=== PATIENT | female | born 1965 | race Caucasian/White ===

== ENCOUNTER 2017-08-08 17:02 | Inpatient (IN) ==
[2017-08-08] MEDS ORDERED: *HR* FentaNYL (PF) 100 MCG/2 ML VIAL IVP ONE ×2 (17:10→18:13)
[2017-08-08] MEDS ORDERED: *HR* FentaNYL (PF) 100 MCG/2 ML VIAL ONE (17:12)
[2017-08-08] MEDS ORDERED: Tdap (Boostrix) Vaccine 0.5 ML SYRINGE IM ONE (17:23)
--- NOTE | 2017-08-08 17:26 | Emergency Department Note ---
Disposition Clinical Impression: Acute internal derangement of knee Qualifiers: Laterality: left Qualified Code(s): M23.92 - Unspecified internal derangement of left knee Tibial plateau fracture Qualifiers: Encounter type: initial encounter Fracture type: closed Laterality: left Qualified Code(s): S82.142A - Displaced bicondylar fracture of left tibia, initial encounter for closed fracture Disposition: Admitted As Inpatient Condition: Good Referrals: Lino Melton MD [Primary Care Provider] - Forms: ED Satisfaction Letter Time of Disposition: 18:39 General Adult HPI - General Chief complaint: ED Extremity Injury, Lower Stated complaint: left knee injury Time Seen by Provider: 08/08/17 17:08 Source: patient Limitations: no limitations Nursing Notes Reviewed: Yes Vital Signs Reviewed: Yes - History of Present Illness HPI Narrative: Female patient fell from approximately 2-1/2-3 feet in the air. Denies any loss of consciousness. Complaining of isolated left knee pain. Have a history of hypertension and gastric bypass. Has not been able to ambulate since the fall. Has not tried any medication to make it better. Pain Scale: 8 - Related Data Home Medications Medication Instructions Recorded Confirmed Calcium 05/13/16 Potassium 05/13/16 B Complex 03/02/17 Vitamin B-12 03/02/17 Vitamin D3 03/02/17 Previous Rx's Medication Instructions Recorded Lidocaine Viscous Oral Soln 15 ml MM QID PRN #200 ml 03/02/17 Sulfamethoxazole/Trimeth DS 1 each PO BID #20 tablet 03/02/17 [Bactrim DS] Allergies Allergy/AdvReac Type Severity Reaction Status Date / Time tramadol AdvReac Drowsy Verified 03/02/17 09:46 All systems ED: reviewed and negative except as stated. Constitutional: Denies: fever, chills Cardiovascular: Denies: chest pain, syncope Respiratory: Denies: cough, dyspnea Gastrointestinal: Denies: abdominal pain, nausea, vomiting, diarrhea Genitourinary: Denies: urgency, dysuria, frequency Musculoskeletal: Reports: other (Left knee pain). Denies: back pain, neck pain Integumentary: Reports: abrasion (To inner right lower leg). Denies: rash Neurological: Denies: headache, weakness Past Medical History - Past Medical History Attestation: Yes The following information was validated with the patient. Source: patient Medical history: Reports: non-contributory Psychiatric history: Reports: no psych history - Social History Smoking Status: Never smoker Smokeless Tobacco Status: No Alcohol use: Reports: occasionally Drug use: Reports: none Physical Exam - General Limitations: no limitations General appearance: alert, in no apparent distress - Head Head exam: atraumatic, normocephalic, normal inspection - Eye Eye exam: Present: normal appearance, PERRL, EOMI - ENT ENT exam: normal exam, normal oropharynx, mucous membranes moist - Neck Neck exam: Present: normal inspection, full ROM, trachea midline - Chest Chest inspection: Present: normal inspection, symmetric chest wall rise - Respiratory Respiratory exam: Present: normal lung sounds bilaterally. Absent: respiratory distress, accessory muscle use - Cardiovascular Cardiovascular exam: Present: regular rate, normal rhythm, normal heart sounds - Abdominal Exam Abdominal exam: Present: soft, Non-Tender. Absent: tenderness, distention, guarding, rebound, rigidity - Expanded Upper Extremity Exam Shoulder exam: Present: normal inspection, full ROM Arm exam: Present: normal inspection, full ROM Elbow exam: Present: normal inspection, full ROM Forearm/Wrist exam: Present: normal inspection, full ROM Hand exam: Present: normal inspection, full ROM Vascular exam: Normal: capillary refill, radial pulse - Expanded Lower Extremity Exam Hip/Pelvis exam: Present: normal inspection, full ROM Upper leg exam: Present: normal inspection, full ROM Knee exam: Present: tenderness (To palpation of left knee.). Absent: ecchymosis , dislocation, erythema Lower leg exam: Present: normal inspection, full ROM Ankle exam: Present: normal inspection, full ROM Foot/toe exam: Present: normal inspection, full ROM Neurovascular/Tendon exam: Absent: motor deficit, sensory deficit, tendon deficit - Back Exam Back exam: Present: normal inspection, full ROM. Absent: tenderness - Neurological Exam Neurological exam: Present: alert, oriented X3 - Psychiatric Psychiatric exam: Present: normal affect, normal mood - Skin Skin exam: Present: warm, dry, normal color - Expanded Skin Exam 1 - Abrasion Course Course Narrative: Female patient was walking down a step stool that she had made an fell. Appears as if she fell from around 2-1/2 to 3 feet up in the air. Denies any loss of consciousness. Reports only left knee pain. Does have some slight abrasions to the medial right lower extremity. Is not up-to-date on her tetanus. We will update this. She denies any other pain. We will provide her with pain medication and images left knee. She has good pulses distal to this injury. Patient does have pain to palpation of the medial aspect of her left knee. She refuses to move this secondary to pain. She has full range of motion of her right lower extremity with no pain. - Reevaluation(s) Reevaluation #1: Patient does have a tibial plateau fracture. I discussed this patient with Dr. mcgill he is requesting her bring the patient into the hospital for admission and get a CT of the knee. We will facilitate this. - Consultations Consultation #1: Dr Orozco consulted. he is requesting a ct of pt tibal plateau and for the Pt to be NPO at midnight. Time: 18:19 Consultation #2: Dr garg accepted Pt in stable condition Time: 18:38 Vital Signs Temperature 98.1 F 08/08/17 17:05 Pulse Rate 104 08/08/17 17:05 Respiratory Rate 20 08/08/17 17:05 Blood Pressure 125/92 08/08/17 17:05 O2 Sat by Pulse Oximetry 98 08/08/17 17:05 Temperature 98.1 F 08/08/17 17:05 Pulse Rate 98 08/08/17 17:07 Respiratory Rate 20 08/08/17 17:05 Blood Pressure 125/92 08/08/17 17:05 O2 Sat by Pulse Oximetry 98 08/08/17 17:05 Oxygen Delivery Oxygen Delivery Room Air Medical Decision Making - Radiology Data Radiology results reviewed: Yes I reviewed the patient's radiology results. Knee X-Ray 08/08/17 17:08 IMPRESSION: Comminuted and mildly depressed lateral tibial plateau fracture. D/ / 08/08/2017 18:06:45 Dante Ngo MD / reyna Interpreting Provider: Dante Ngo MD Tibia/Fibula X-Ray 08/08/17 17:26
--- NOTE | 2017-08-08 17:38 | Emergency Department Note ---
Disposition Clinical Impression: Acute internal derangement of knee Disposition: Still a Patient Referrals: Lino Melton MD [Primary Care Provider] - Forms: ED Satisfaction Letter General Adult HPI - General Chief complaint: ED Extremity Injury, Lower Stated complaint: left knee injury Time Seen by Provider: 08/08/17 17:08 Source: patient Limitations: no limitations - History of Present Illness HPI Narrative: Attestation note I examined this patient and my medical decision-making was reviewed with the emergency medicine resident. I agree with the documented findings, disposition and treatment plan as described except to the extent set forth below. Patient seen with emergency medicine resident Dr. Pratima Thorpe, Please see a copy of his note for details of the H&P, ED evaluation, management and disposition. I have independently evaluated the patient and confirmed appropriate portions of the history and physical exam. Briefly: 51-year-old female by EMS after slip and fall down stairs spell for Internal left knee which is in a vacuum splint. Chest some slight abrasions patient will get a tetanus booster patient got IV fentanyl for pain control patient getting x-rays. Disposition pending. Pain Scale: 8 - Related Data Home Medications Medication Instructions Recorded Confirmed Calcium 05/13/16 Potassium 05/13/16 B Complex 03/02/17 Vitamin B-12 03/02/17 Vitamin D3 03/02/17 Previous Rx's Medication Instructions Recorded Lidocaine Viscous Oral Soln 15 ml MM QID PRN #200 ml 03/02/17 Sulfamethoxazole/Trimeth DS 1 each PO BID #20 tablet 03/02/17 [Bactrim DS] Allergies Allergy/AdvReac Type Severity Reaction Status Date / Time tramadol AdvReac Drowsy Verified 03/02/17 09:46 Past Medical History - Past Medical History Medical history: Reports: non-contributory Psychiatric history: Reports: no psych history - Social History Smoking Status: Never smoker Smokeless Tobacco Status: No Alcohol use: Reports: occasionally Drug use: Reports: none Physical Exam - General Limitations: no limitations General appearance: alert, in no apparent distress Course - Reevaluation(s) Reevaluation #1: Attestation note I examined this patient and my medical decision-making was reviewed with the emergency medicine resident. I agree with the documented findings, disposition and treatment plan as described except to the extent set forth below. Patient seen with emergency medicine resident Dr. Pratima Thorpe, Please see a copy of his note for details of the H&P, ED evaluation, management and disposition. I have independently evaluated the patient and confirmed appropriate portions of the history and physical exam. Briefly: 51-year-old female history of kidney stone presents with flank pain and dysuria hematuria. Physical examination is benign afebrile with stable vital signs patient with analgesics urinalysis. Disposition pending. Time: 17:37 Vital Signs Temperature 98.1 F 08/08/17 17:05 Pulse Rate 104 08/08/17 17:05 Respiratory Rate 20 08/08/17 17:05 Blood Pressure 125/92 08/08/17 17:05 O2 Sat by Pulse Oximetry 98 08/08/17 17:05 Temperature 98.1 F 08/08/17 17:05 Pulse Rate 98 08/08/17 17:07 Respiratory Rate 20 08/08/17 17:05 Blood Pressure 125/92 08/08/17 17:05 O2 Sat by Pulse Oximetry 98 08/08/17 17:05 Oxygen Delivery Oxygen Delivery Room Air
[2017-08-08] MEDS ORDERED: *HR* OxyCODONE/APAP 7.5/325 TABLET PO STA (18:14)
[2017-08-08] MEDS ORDERED: OXYCODONE Oral CONC 10 MG/0.5 ML ORAL.SYG SL PRN (19:22)
[2017-08-08] MEDS ORDERED: Ondansetron 4 MG/2 ML VIAL IVP PRN (19:22)
[2017-08-08] MEDS ORDERED: Naloxone 0.4 MG/ML INJ IVP PRN (19:22)
--- NOTE | 2017-08-08 19:30 | Internal Med History&Physical ---
Date of Encounter: 08/08/17 Time of Encounter: 19:10 Internal Medicine - H&P: HPI Chief complaint: L leg pain Admitted From: Home Plans for Post Hospital Care: Home History of present illness: Ms. Gregory is a 51 year old female with no medical problems fell off stool today and landed on L leg. She had severe pain and EMS called. In ED she was found to have tibial plateau fracture and admitted. Currently she is having some pain. Denies syncope. No fever or chills. Past Med Surg Social Fam HX - Past Medical History Source: patient Medical history: no medical history Psychiatric history: no psych history - Past Surgical History Additional surgical history: SPINAL SX X2. L thumb surgery - Social History Smoking Status: Never smoker Smokeless Tobacco Status: No Alcohol use: occasionally Drug use: none Current living situation: Home - Independent Activity Level: Independent ambulation Additional social history: Denies significant family history Internal Medicine - H&P: Meds Calcium 05/13/16 [History] Potassium 05/13/16 [History] B Complex 03/02/17 [History] Lidocaine Viscous Oral Soln 15 ml MM QID PRN #200 ml 03/02/17 [Rx] Sulfamethoxazole/Trimeth DS [Bactrim DS] 1 each PO BID #20 tablet 03/02/17 [Rx] Vitamin B-12 03/02/17 [History] Vitamin D3 03/02/17 [History] 3 Allergy/AdvReac Type Severity Reaction Status Date / Time tramadol AdvReac Drowsy Verified 03/02/17 09:46 All Systems PM: A 10-system review of systems was performed and is negative for pertinent findings except as documented above in the HPI. - Constitutional Constitutional: no fatigue, no malaise - EENT Eyes: no blurry vision, no loss of vision Ears: no decreased hearing Nose, mouth and throat: no dry mouth, no mouth pain, no sore throat - Cardiovascular Cardiovascular ROS IM: no chest pain, no dyspnea, no dyspnea on exertion - Respiratory Respiratory: no cough, no dyspnea, no chest congestion - Gastrointestinal Gastrointestinal: no abdominal pain, no melena - Genitourinary Genitourinary: no dysuria, no flank pain, no urinary urgency - Musculoskeletal Musculoskeletal ROS IM: arthralgias - Integumentary Integumentary IM: no erythema, no rash - Neurological Neurological ROS: no dizziness, no loss of vision - Endocrine Endocrine IM: no cold intolerance, no flushing - Hematologic/Lymphatic Hematologic/Lymphatic: no easy bruising - Allergic/Immunologic Allergic/Immunologic: no itchy eyes, no wheezing - Constitutional Vitals: Temp Pulse Resp BP Pulse Ox 98.9 F 73 15 116/79 99 08/08/17 19:21 08/08/17 19:21 08/08/17 19:21 08/08/17 19:21 08/08/17 19:21 General appearance: Present: A&O X 3, pleasant, answers questions appropriately - Head Head exam: Present: normocephalic - Eye Eye exam: Present: EOMI, conjuntiva pink - ENT ENT exam: Present: mucous membranes dry - Neck Neck exam general surgery: Present: supple. Absent: tenderness - Respiratory Respiratory exam: Present: CTAB. Absent: rales, rhonchi, wheezes - Cardiovascular Cardiovascular exam: Present: RRR. Absent: systolic murmur, tachycardia - GI/Abdominal GI/Abdominal exam: Present: normal bowel sounds, soft. Absent: mass, tenderness - Extremities Exam Extremities exam: Present: joint swelling, tenderness, warm - Neurological Exam Neurological exam: Present: alert, oriented X3, no focal deficits - Skin Skin exam: Present: dry, warm. Absent: rash - Assessment and plan (1) Tibial plateau fracture Current Visit: Yes Status: Acute Assessment and plan: Acute L tibial plateau fracture. NPO midnight Pain control Medically low risk for surgery. Qualifiers: Encounter type: initial encounter Fracture type: closed Laterality: left Qualified Code(s): S82.142A - Displaced bicondylar fracture of left tibia, initial encounter for closed fracture - Time Spent With Patient Total time spent is greater than 50% in coordination of care (as documented) at patient's floor/unit and/or counseling patient:
[2017-08-08] MEDS: OXYCODONE Oral CONC 10 MG/0.5 ML ORAL.SYG SL PRN (19:56)
[2017-08-08] MEDS ORDERED: *HR* Meperidine 25 MG/ML SYRINGE IVP PRN (22:41)
--- NOTE | 2017-08-08 23:01 | Orthopedic Consult Note ---
Date of Encounter: 08/08/17 Time of Encounter: 22:54 History of Present Illness Chief complaint: Left knee pain HPI: Ms. Gregory is a 51 year old female who sustained an injury to her left knee when she fell off a small stool. She landed directly on her left leg with immediate pain about the left knee and he will inability to ambulate. She was brought to the emergency room and [facility] x-rays taken revealed evidence of a fracture. This was further evaluated with a CT scan that delineate the extent of the injury. Patient denies neurovascular complaints. She describes excruciating pain. Denies any other injuries. Patient is known to me from previous orthopedic treatment in the past. I reviewed the patient's complete medical record including history and physical examination and multiple imaging studies. Pertinent orthopedic examination reveals a knee held in a flexed position. There is marked tenderness. No obvious ecchymosis at this time. Distal neurosensory exam is grossly intact. I reviewed x-rays. These are difficult to interpret due to the persistent flexed position of the x-ray but there is evidence of widening of the lateral side of the tibia with a valgus deformity. CT scan is much more revealing showing a markedly comminuted, split, depressed lateral tibial plateau fracture with an associated fracture of the medial tibial plateau extending down to the metaphyseal region. Impression: Displaced, comminuted bicondylar fracture left tibial plateau Recommendation: At a very long discussion with the patient regarding the magnitude of this injury and the long-term ramifications of it. This is a severe injury with some chronic sequelae related to it. I discussed treatment options which would be either nonoperative with poor outcome anticipated for surgical intervention in the form of open reduction internal fixation with attempts to elevate the depressed segments and restore at least normal width of the tibia. I discussed with the patient that surgery is going to be designed to give her good bone stock for the time when her knee is more problematic due to the posttraumatic arthritis that a knee replacement is indicated. We discussed the surgical procedure at length which included a discussion of the risks and complications that include but are not limited to bleeding, infection , nerve injury, stiffness, malunion, nonunion, as well as the very much anticipated posttraumatic arthritis. Patient understands and has signed informed consent to proceed with surgery. We will schedule for tomorrow and proceed when operating room time is available. Thank you very much for allowing me to see and care for Ms. Gregory. Sincerely, Marco A Orozco,DO Past Med Surg Social Fam HX - Past Medical History Medical history: no medical history Psychiatric history: no psych history - Past Surgical History Surgical History: Additional surgical history: SPINAL SX X2. L thumb surgery - Social History Smoking Status: Never smoker Smokeless Tobacco Status: No Alcohol use: occasionally Drug use: none - Family History Father Name: BETO GREGORY Living Status: Hx Family Cancer: Yes Medications and Allergies Calcium 05/13/16 [History] Potassium 05/13/16 [History] B Complex 03/02/17 [History] Lidocaine Viscous Oral Soln 15 ml MM QID PRN #200 ml 03/02/17 [Rx] Sulfamethoxazole/Trimeth DS [Bactrim DS] 1 each PO BID #20 tablet 03/02/17 [Rx] Vitamin B-12 03/02/17 [History] Vitamin D3 03/02/17 [History] 3 Allergy/AdvReac Type Severity Reaction Status Date / Time tramadol AdvReac Drowsy Verified 03/02/17 09:46 All Systems Reviewed: The remainder of the systems were reviewed and are negative Physical Exam - Constitutional Vitals: Temp Pulse Resp BP Pulse Ox 98.9 F 73 15 116/79 99 08/08/17 19:21 08/08/17 19:21 08/08/17 19:21 08/08/17 19:21 08/08/17 19:21 Results - Labs Labs: All other labs normal. - Diagnostic results Knee x-ray: image reviewed Knee CT: image reviewed Consult Discharge Plan - Plan Referrals: Lino Melton MD [Primary Care Provider] -
[2017-08-08] MEDS: *HR* Meperidine 25 MG/ML SYRINGE IVP PRN (23:04)
[2017-08-09] MEDS: Ringers Solution, Lactated 1,000 ML IVC SCH ×2 (00:10→13:34)
[2017-08-09] MEDS: OXYCODONE Oral CONC 10 MG/0.5 ML ORAL.SYG SL PRN ×4 (00:13→23:53)
[2017-08-09] MEDS: *HR* Meperidine 25 MG/ML SYRINGE IVP PRN ×5 (01:57→16:22)
[2017-08-09] MEDS: Ketorolac 30 MG/ML VIAL IVP PRN ×2 (03:25→12:37)
[2017-08-09 05:02] LABS: Basophils % 0.3 %; Eosinophils % 0.3 %; Hematocrit 32.5 % (35.3-44.9); Hemoglobin 10.3 g/dL (11.5-15.4); Immature Granulocytes % 0.3 % (0-4); Lymphocytes # 1.3 K/mcL (0.6-4.6); Lymphocytes % 20.4 %; Mean Corpuscular HGB Conc 31.7 g/dL (31.6-35.5); Mean Corpuscular Volume 94.8 fL (83.0-100.0); Mean Platelet Volume 10.8 fL (9.4-12.4); Monocytes # 0.7 K/mcL (0.0-1.3); Monocytes % 11.2 %; Neutrophils # 4.2 K/mcL (1.6-8.9); Platelet Count 215 K/mcL (140-400); Red Blood Count 3.43 M/mcL (3.82-4.97); Red Cell Distribution Width 13.7 % (11.5-14.5); Segmented Neutrophils % 67.5 %
[2017-08-09 05:17] LABS: BUN/Creatinine Ratio 21 (6-26); Blood Urea Nitrogen 16 mg/dL (6-20); Calcium 8.8 mg/dL (8.6-10.3); Carbon Dioxide 27 mEq/L (23-29); Chloride 107 mEq/L (98-107); Glucose 100 mg/dL (70-105); Osmolality,Calculated 291 (280-300); Potassium 3.7 mEq/L (3.5-5.1); Sodium 140 mEq/L (136-145); eGFR For African Americans > 60 (> 60); eGFR For Non-African Americans > 60 (> 60)
[2017-08-09] MEDS ORDERED: *HR* Enoxaparin 30 MG/0.3 ML SYRINGE SQ SCH (06:00)
[2017-08-09] MEDS ORDERED: Orphenadrine 60 MG/2 ML VIAL IVP ONE ×2 (09:01→17:34)
--- NOTE | 2017-08-09 15:46 | Anesthesia Evaluation PreOp ---
Date of Encounter: 08/09/17 Time of Encounter: 18:30 - Past History Planned Operation: ORIF L-Tibial Plateau Fx Cardiac History: Denies any Significant Hx Pulmonary History: Denies Any Significant HX SHEET HANGER History: Denies Any Significant HX Other Medical History: Denies Any Significant HX Anesthesia History: No Prior Anesthetic Complications, Past Anesthesia (Spinal Surgery x 2, x 1, [facility], Thumb arthroscopy, Gastric bypass 2005) Alcohol Use: occasionally Drug use: none Medications and Allergies Acyclovir [Zovirax] 400 mg PO TID PRN 08/09/17 [History] Ascorbate Calcium [Vitamin C] 1,000 mg PO DAILY 08/09/17 [History] Calcium Carbonate [Calcium] 600 mg PO DAILY 08/09/17 [History] Cholecalciferol (D-3) [Vitamin D] 1,000 unit PO DAILY 08/09/17 [History] Potassium Gluconate [Potassium] 99 mg PO DAILY 08/09/17 [History] 3 Allergy/AdvReac Type Severity Reaction Status Date / Time tramadol AdvReac Drowsy Verified 03/02/17 09:46 - Meds/Allergy Pre-op Review Medications Reviewed: Yes Allergies Reviewed: Yes Beta Blockers on Current Med List: No Anesthesia Results - Labs 08/09/17 00:32 08/09/17 00:32 Laboratory Results WBC 6.2 K/mcL (4.3-11.1) 08/09/17 00:32 RBC 3.43 M/mcL (3.82-4.97) L 08/09/17 00:32 Hgb 10.3 g/dL (11.5-15.4) L 08/09/17 00:32 Hct 32.5 % (35.3-44.9) L 08/09/17 00:32 MCV 94.8 fL (83.0-100.0) 08/09/17 00:32 MCH 30.0 pg (28.0-33.3) 08/09/17 00:32 MCHC 31.7 g/dL (31.6-35.5) 08/09/17 00:32 RDW 13.7 % (11.5-14.5) 08/09/17 00:32 Plt Count 215 K/mcL (140-400) 08/09/17 00:32 MPV 10.8 fL (9.4-12.4) 08/09/17 00:32 Immature Gran % 0.3 % (0-4) 08/09/17 00:32 Seg Neutrophils % 67.5 % 08/09/17 00:32 Lymphocytes % 20.4 % 08/09/17 00:32 Monocytes % 11.2 % 08/09/17 00:32 Eosinophils % 0.3 % 08/09/17 00:32 Basophils % 0.3 % 08/09/17 00:32 Neutrophils # 4.2 K/mcL (1.6-8.9) 08/09/17 00:32 Lymphocytes # 1.3 K/mcL (0.6-4.6) 08/09/17 00:32 Monocytes # 0.7 K/mcL (0.0-1.3) 08/09/17 00:32 Eosinophils # 0.0 K/mcL (0.0-0.6) 08/09/17 00:32 Basophils # 0.0 K/mcL (0.0-0.2) 08/09/17 00:32 Sodium 140 mEq/L (136-145) 08/09/17 00:32 Potassium 3.7 mEq/L (3.5-5.1) 08/09/17 00:32 Chloride 107 mEq/L (98-107) 08/09/17 00:32 Carbon Dioxide 27 mEq/L (23-29) 08/09/17 00:32 BUN 16 mg/dL (6-20) 08/09/17 00:32 Creatinine 0.75 mg/dL (0.60-1.20) 08/09/17 00:32 Est GFR ( Amer) > 60 (> 60) 08/09/17 00:32 Est GFR (Non-Af Amer) > 60 (> 60) 08/09/17 00:32 BUN/Creatinine Ratio 21 (6-26) 08/09/17 00:32 Glucose 100 mg/dL (70-105) 08/09/17 00:32 Calculated Osmolality 291 (280-300) 08/09/17 00:32 Calcium 8.8 mg/dL (8.6-10.3) 08/09/17 00:32 Magnesium 1.8 mg/dL (1.6-2.6) 08/09/17 00:32 Impressions Knee X-Ray 08/08/17 17:08 IMPRESSION: Comminuted and mildly depressed lateral tibial plateau fracture. D/ / 08/08/2017 18:06:45 Dante Ngo MD / reyna Interpreting Provider: Dante Ngo MD Tibia/Fibula X-Ray 08/08/17 17:26 IMPRESSION: Comminuted and mildly depressed lateral tibial plateau fracture. D/ / 08/08/2017 18:06:45 Dante Ngo MD / reyna Interpreting Provider: Dante Ngo MD Knee CT 08/08/17 18:18 IMPRESSION: Comminuted lateral tibial plateau fracture with at least 15 mm of depression. Nondisplaced fracture of the medial tibial plateau. Fracture of the proximal fibula. D/ / 08/08/2017 18:58:18 Mark Kimble MD / reyna Interpreting Provider: Mark Kimble MD Anesthesia Exam Vital Signs Temp Pulse Pulse Resp BP Pulse Ox 08/09/17 08:12 99 08/09/17 06:39 98.7 F 68 16 118/86 99 08/09/17 03:14 98.5 F 73 15 92/42 99 08/09/17 00:31 97.7 F 69 14 110/74 99 08/08/17 19:21 98.9 F 73 15 116/79 99 08/08/17 19:01 16 141/76 08/08/17 17:07 98 08/08/17 17:05 98.1 F 104 20 125/92 98 Intake and Output 08/08/17 08/09/17 08/09/17 23:59 07:59 15:59 Intake Total 200 / 200 1150 / 1150 Output Total 400 / 400 Balance 200 / 200 750 / 750 Intake: IV Fluids 1000 / 1000 Lactated Ringers 1,000 ML @ 75 1000 / 1000 mls/hr IVC .[id number] LIGIA Rx#: [id number] Oral 200 / 200 150 / 150 Output: Urine 400 / 400 Other: Meal Breakfast Percent of Meal Consumed 15% Weight 77.1 kg Height: 4'11" Weight: 169# BMi = 34.3 NPO (# of Hours): Breakfast @ 0900 - HEENT Pupil (Motor): Pupils equal, EOMI Mallampati: II Teeth: Normal Oral Opening: Greater than 3 - SHEET HANGER LOC: Oriented SHEET HANGER Motor: Normal RUE, Normal LUE, Normal RLE, Normal LLE, Normal Face SHEET HANGER Sensory: Normal: RUE, LUE, RLE, LLE, Face - Cardiac Rhythm: Regular Murmur: None - Pulmonary Breath Sounds: bilateral Clear Respiratory Effort: Symmetrical Anesthesia Assess/Plan ASA Score: 2 Modified Leo Scale for Level of Consciousness: Cooperative, oriented, and tranquil Anesthetic Plan: General Monitoring Plan: Standard Monitors Recovery Plan: PACU Anes Supervising Prov Stmt: Pt seen/evaluated, R&B Discussed, questions answered and consent obtained. Gregory Ludwig MD
--- NOTE | 2017-08-09 17:35 | Internal Med Progress Note ---
Date of Encounter: 08/09/17 Time of Encounter: 15:00 - Assessment and plan (1) Tibial plateau fracture Current Visit: Yes Status: Acute Assessment and plan: Acute L tibial plateau fracture. Awaiting surgery today. Further plans after OR. Qualifiers: Encounter type: subsequent encounter Fracture type: closed Laterality: left Fracture healing: with routine healing Qualified Code(s): S82.142D - Displaced bicondylar fracture of left tibia, subsequent encounter for closed fracture with routine healing (2) Anemia Current Visit: Yes Status: Suspected Assessment and plan: No prior H/H in our computer system. Suspect she has component of posthemorrhagic anemia. Recheck tomorrow. Qualifiers: Anemia type: other cause Other causes of anemia: acute posthemorrhagic Qualified Code(s): D62 - Acute posthemorrhagic anemia - Time Spent With Patient Total time spent is greater than 50% in coordination of care (as documented) at patient's floor/unit and/or counseling patient: - Subjective Interval history: Ms Gregory is currently admitted for acute L tibial plateau fracture. She is to go to OR today. She remains moderate to high risk due to potential for worsening clinical status. Ms Gregory is resting at this time. She is having a fair amount of pain. She is to go to OR later today. No fever or chills. No numbness or tingling in leg. - Constitutional Vitals: Temp Pulse Resp BP Pulse Ox 98.4 F 76 18 124/78 99 08/09/17 10:19 08/09/17 10:19 08/09/17 10:19 08/09/17 10:19 08/09/17 10:19 General appearance: Present: A&O X 3, pleasant, answers questions appropriately - Head Head exam: Present: normocephalic - Eye Eye exam: Present: EOMI, conjuntiva pink - ENT ENT exam: Present: mucous membranes moist - Respiratory Respiratory exam: Present: CTAB. Absent: rales, rhonchi, wheezes - Cardiovascular Cardiovascular exam: Present: RRR. Absent: tachycardia - GI/Abdominal GI/Abdominal exam: Present: soft. Absent: tenderness - Extremities Exam Extremities exam: Present: tenderness, warm - Neurological Exam Neurological exam: Present: alert, oriented X3 - Skin Skin exam: Present: dry, warm Internal Medicine: Result - Labs CBC & Chem 7: 08/09/17 00:32 08/09/17 00:32 Labs: Short CBC 08/09/17 Range/Units 00:32 WBC 6.2 (4.3-11.1) K/mcL Hgb 10.3 L (11.5-15.4) g/dL Hct 32.5 L (35.3-44.9) % Plt Count 215 (140-400) K/mcL Neutrophils # 4.2 (1.6-8.9) K/mcL BMP 08/09/17 00:32 Sodium 140 Potassium 3.7 Chloride 107 Carbon Dioxide 27 BUN 16 Creatinine 0.75 Glucose 100 Calcium 8.8 - VTE Documentation of Mechanical Device: Venous foot pump, device Consult Discharge Plan - Plan Referrals: Lino Melton MD [Primary Care Provider] -
[2017-08-09] MEDS ORDERED: *HR* FentaNYL (PF) 100 MCG/2 ML VIAL ONE (18:45)
[2017-08-09] MEDS ORDERED: *HR* Succinylcholine 200 MG/10 ML VIAL IVP ONE (18:45)
[2017-08-09] MEDS ORDERED: *HR* Midazolam HCl 2 MG/2 ML VIAL ONE (18:45)
[2017-08-09] MEDS ORDERED: *HR* Propofol 200 MG/20 ML VIAL IVP ONE ×2 (18:45→23:06)
[2017-08-09] MEDS ORDERED: *HR* Rocuronium Bromide 50 MG/5 ML VIAL ONE (18:45)
[2017-08-09] MEDS ORDERED: Lidocaine -MPF 2% 2 ML VIAL ONE (18:45)
[2017-08-09] MEDS ORDERED: ROPIVACAINE HCL/PF 0.5% 30 ML VIAL ONE (19:02)
[2017-08-09] MEDS ORDERED: Water for inj. (sterile) 30 ML IV ONE (19:04)
--- NOTE | 2017-08-09 21:15 | Anesthesia Procedures ---
Date of Encounter: 08/09/17 Time of Encounter: 19:16 Procedures: Anesthesia - Nerve Block Procedure Date: 08/09/17 Time: 19:25 ([id number] In OR before induction) Pre-op Diagnosis: Left tibial plateau fracture Surgical Procedure: ORIF left tibial plateau fracture Checklist: Correct Patient Identifier, Correct procedure, History checked Correct side: Left Blood Thinner: No Monitor Applied: EKG, BP, Pulse Oximetry Supplemental Oxygen via Nasal Cannula (L/min): 8 (Face mask) Indication: Post Op Analgesia Pre-op Neuro Deficits: No Block Type: Femoral, Sciatic Catheter placed: No Sterile Technique: Yes Ultrasound used: Yes Anatomy identified: Yes Visual spread of Local: Yes Neuro Stimulation: No Blood on Needle Aspiration: No Smooth Injection of Local: Yes Pain with Injection of Local: No Prep: Chlorhexadine Needle: 22 x 50 mm Stimuplex, 21 x 100 mm Stimuplex Local: Other (0.25% Ropivacaine ) Volume (cc): 20 ml Fem, 40 ml Sci Complications: None/effective block Vitals: See anesthesia record Comments: See anesthesia record for documentation of sedation. Left femoral nerve block performed in the supine position. Left sciatic nerve block performed in the right lateral position. Patient feeling comfortable at the fx site prior to induction.
[2017-08-09] MEDS ORDERED: *HR* PHENYLEPHRINE 1,000 MCG/10 ML SYRINGE IVP ONE (21:46)
[2017-08-09] MEDS ORDERED: Ketorolac 30 MG/ML VIAL ONE (22:32)
[2017-08-09] MEDS ORDERED: Ondansetron 4 MG/2 ML VIAL ONE (22:32)
--- NOTE | 2017-08-09 23:31 | Anesthesia Evaluation Post Op ---
Date of Encounter: 08/10/17 Time of Encounter: 23:46 Notes: Patient's vital signs have been reviewed. Patient is stable postoperatively and has adequately recovered from anesthesia. Patient is determined to have stable airway patency and respiratory function including respiratory rate and oxygen saturation. Patient has a stable heart rate, blood pressure and adequate hydration. Patients mental status is acceptable. Patients temperature is appropriate. Pain and nausea are adequately controlled. - Discharge PostOp Status: Transfer Patient to floor
--- NOTE | 2017-08-10 00:27 | Operative Note ---
Date of procedure: 08/10/17 Pre-op diagnosis: Displaced, comminuted, bicondylar fracture left tibial plateau Post-op diagnosis: other (1. Displaced comminuted bicondylar fracture left tibial plateau space 2. Displaced bucket-handle tear left lateral meniscus space 3. Body mass index 34) Procedure: 1. Open reduction internal fixation of left tibial plateau fracture 2. Fluoroscopic guidance for ORIF left tibial plateau 3. Insertion of bone graft matrix left tibia 4. Lateral meniscus repair left knee Implants: Synthes 4 hole left lateral proximal tibial LCP and a 3 hole 3.5 mm LCP right angle T plate, 5 mL of Norian putty. Complications: None Anesthesia: GETA Surgeon: Marco A Orozco Was there an dental office assistant present: No Estimated blood loss (cc): 36 Tourniquet Time (Minutes): 167 Specimen: None Condition: stable Disposition: PACU Procedure in Detail: Gross findings: Preoperative x-rays and a CT scan revealed a complex comminuted bicondylar fracture of the left tibial plateau. This was a complex fracture with massive involvement of the lateral compartment with a numerous amount of articular fragments grossly displaced with impaction of the fragments into the proximal metaphysis. This is associated with a split. Medial fracture was predominantly posteromedial. This is associated with a nondisplaced fibular head fracture. Intraoperative findings were as anticipated. This was a devastating injury to the lateral compartment with numerous small osteoarticular fragments. The surface was elevated and temporarily pinned while a plate was applied. A bone graft substitute was packed into the void left after the fragments were elevated. Overall excellent position of the lateral compartment was noted. The lateral meniscus had sustained a displaced bucket-handle tear with detachment from the synovial lining. Repair was accomplished with several #2-0 Ethibond suture repairing it to the capsular attachment point. Medial fracture was stabilized with a small T buttress plate. Multiplanar fluoroscopy was used to verify that the fractures were well reduced and implants were in excellent position. Suture patient was taken the operating room and placed in supine position on the operating room table. Patient had a femoral and sciatic nerve block administered in the operating room prior to transfer. Once on the operating room table she was administered a general anesthesia and then the left lower extremity was prepped and draped in normal standard fashion with a tourniquet placed high about the upper thigh. Leg was now exsanguinated utilizing Esmarch and tourniquet was inflated. Incision was created from the level of the patella and carried distally in the midline. Dissection was carried through the abundant subcutaneous adipose tissue down the level of the tibia and the patella tendon. Full-thickness subcutaneous flaps were created both medial lateral. Attention was first turned the lateral side. The lateral tissues were split just off the tibia distally remained carried proximal. Subperiosteal dissection was performed though in a limited fashion to allow for exposure of the fracture site and reduction of the fragments. The dissection was carried proximally with a opening of the joint along the lateral aspect to evacuate a large lipoma hemarthrosis and to allow for further visualization of the injury. The dissection was carried predominantly bluntly. The bucket-handle tear of the lateral meniscus was noted. Several stitches of #2-0 Ethibond were placed for traction on the meniscus and later repair. At this time the fracture site was exposed by the lateral cortical fragment from the underlying articular fragments. The joint and the fracture area was irrigated of clot and debris. At this time fluoroscopy was used to help guide the isolation and elevation of the multiple fragments. These were elevated into position and temporarily held with the briars. Once they were elevated and pulmonary stabilize the lateral cortical fragment was again reduced. A 4 hole proximal tibial lateral LCP plate was selected. Some additional bend on the plate was created to allow for more buttressing of the proximal fragment. The plate was temporarily pinned and a single lag screw was placed in the long axis of the plate securing it to the tibia. Once the position of the fracture and implant was verified a small window was created just anterior to the plate and below the joint surface. This was used to introduce an elevator to continue to elevate the fragments and to create a space to allow the bone graft substitute to be packed. The Norian was reconstituted and allowed to thicken. Once it was starting to harden it was packed into the void created by elevating the lateral fragments. It was packed firmly. Fluoroscopy was used to verify that the fragments remained in excellent position and that the bone graft matrix was well placed. Attention was now turned medial. Medial dissection was performed exposing the lateral and slightly posterior aspects. A small 3.5 mm locking T plate was selected. It was bent to fit the proximal tibia in the posterolateral aspect. It was held in place and then a single cancellus screw was placed in the metaphyseal region. This is followed by placing multiple locking screws distally followed by several transverse screws in the subchondral bone of the tibia. Fluoroscopy was used to verify that these remained well positioned. Attention was now returned to the lateral side. After the graft substitute had more thoroughly hardened multiple locking screws were placed proximal as well as distal securing the plate and fracture. Biplanar fluoroscopy was used to verify that the fracture remained well reduced and implants were in excellent position. At this time the lateral meniscus was repaired to the lateral capsule as well as synovial tissue with previously placed #2 Ethibond and reinforced with some additional 2-0 Ethibond. Wounds now irrigated. The fascial split mediolateral were then repaired with running #1 Vicryl. Deep subtendinous tissue was closed with running #1 Vicryl. Medius obtained his tissue then closed with multiple inverted interrupted 2-0 undyed Vicryl followed by skin approximation with stainless steel clips. Sterile dressings consisting of bacitracin Adaptic ABDs sterile cast padding and Bola wraps are applied and secured. Tourniquet was now deflated. Patient was now placed into a knee immobilizer. This was now awakened from anesthesia, extubated and then transferred to the postanesthesia care unit in stable and satisfactory condition. All sponge needle evidence for counts are correct. No specimens are sent for pathology.
[2017-08-10] MEDS ORDERED: OXYCODONE Oral CONC 10 MG/0.5 ML ORAL.SYG SL PRN (00:33)
[2017-08-10] MEDS ORDERED: Ondansetron 4 MG/2 ML VIAL IVP PRN (00:33)
[2017-08-10] MEDS ORDERED: Naloxone 0.4 MG/ML INJ IVP PRN (00:33)
[2017-08-10 02:09] LABS: Hematocrit 32.7 % (35.3-44.9); Hemoglobin 10.7 g/dL (11.5-15.4); Mean Corpuscular HGB Conc 32.7 g/dL (31.6-35.5); Mean Corpuscular Hemoglobin 30.7 pg (28.0-33.3); Mean Platelet Volume 10.5 fL (9.4-12.4); Platelet Count 187 K/mcL (140-400); Red Blood Count 3.48 M/mcL (3.82-4.97); Red Cell Distribution Width 13.9 % (11.5-14.5)
[2017-08-10] MEDS: Ringers Solution, Lactated 1,000 ML IVC SCH ×2 (02:13→17:45)
[2017-08-10] MEDS: *HR* Meperidine 25 MG/ML SYRINGE IVP PRN ×7 (02:17→21:01)
[2017-08-10 02:35] LABS: BUN/Creatinine Ratio 18 (6-26); Blood Urea Nitrogen 12 mg/dL (6-20); Calcium 8.9 mg/dL (8.6-10.3); Carbon Dioxide 26 mEq/L (23-29); Chloride 105 mEq/L (98-107); Glucose 184 mg/dL (70-105); Osmolality,Calculated 289 (280-300); Sodium 137 mEq/L (136-145); eGFR For African Americans > 60 (> 60); eGFR For Non-African Americans > 60 (> 60)
[2017-08-10] MEDS: *HR* Enoxaparin 30 MG/0.3 ML SYRINGE SQ SCH ×2 (05:17→16:17)
[2017-08-10] MEDS ORDERED: *HR* Enoxaparin 30 MG/0.3 ML SYRINGE SQ SCH (06:00)
[2017-08-10] MEDS: Ketorolac 30 MG/ML VIAL IVP PRN ×2 (08:05→14:40)
[2017-08-10] MEDS: OXYCODONE Oral CONC 10 MG/0.5 ML ORAL.SYG SL PRN ×2 (11:21→16:10)
--- NOTE | 2017-08-10 16:25 | Internal Med Progress Note ---
Date of Encounter: 08/10/17 Time of Encounter: 15:15 - Assessment and plan (1) Tibial plateau fracture Current Visit: Yes Status: Acute Assessment and plan: Pt with acute traumatic L tibial plateau fracture s/p OR yesterday. Appears to be doing OK and progressing. Pain control. Has been recommended inpatient rehab. Qualifiers: Encounter type: subsequent encounter Fracture type: closed Laterality: left Fracture healing: with routine healing Qualified Code(s): S82.142D - Displaced bicondylar fracture of left tibia, subsequent encounter for closed fracture with routine healing (2) Anemia Current Visit: Yes Status: Suspected Assessment and plan: No prior H/H in our computer system. H/H stable from yesterday. Qualifiers: Anemia type: other cause Other causes of anemia: acute posthemorrhagic Qualified Code(s): D62 - Acute posthemorrhagic anemia - Time Spent With Patient Total time spent is greater than 50% in coordination of care (as documented) at patient's floor/unit and/or counseling patient: - Subjective Interval history: Ms Gregory is currently admitted for acute L tibial plateau fracture. She had OR repair last evening. She remains moderate to high risk due to potential for worsening clinical status. Ms Gregory is having some pain. She has tried to take meds consistently. Has been recommended inpatient rehab but she is concerned as she does not have FMLA available. No fever or chills. No CP or SOB. Appetite OK. - Constitutional Vitals: Temp Pulse Resp BP Pulse Ox 98.1 F 94 18 96/60 95 08/10/17 15:50 08/10/17 15:50 08/10/17 15:50 08/10/17 15:50 08/10/17 15:50 General appearance: Present: A&O X 3, pleasant, answers questions appropriately - Head Head exam: Present: atraumatic, normocephalic - Eye Eye exam: Present: EOMI, conjuntiva pink - ENT ENT exam: Present: mucous membranes moist - Respiratory Respiratory exam: Present: CTAB. Absent: rales, rhonchi, wheezes - Cardiovascular Cardiovascular exam: Present: RRR. Absent: tachycardia - GI/Abdominal GI/Abdominal exam: Present: soft. Absent: tenderness - Extremities Exam Extremities exam: Present: tenderness, warm - Neurological Exam Neurological exam: Present: alert, oriented X3 - Skin Skin exam: Present: dry, warm Internal Medicine: Result - Labs CBC & Chem 7: 08/10/17 01:37 08/10/17 01:37 Labs: Short CBC 08/10/17 Range/Units 01:37 WBC 7.0 (4.3-11.1) K/mcL Hgb 10.7 L (11.5-15.4) g/dL Hct 32.7 L (35.3-44.9) % Plt Count 187 (140-400) K/mcL BMP 08/10/17 01:37 Sodium 137 Potassium 4.0 Chloride 105 Carbon Dioxide 26 BUN 12 Creatinine 0.67 Glucose 184 H Calcium 8.9 - Impressions Impressions Fluoroscopy 08/09/17 20:10 IMPRESSION: Intraprocedural fluoroscopic spot images as above. See separate procedure report for more information. D/ / Selma Kim Cha, MD / Selma Kim Cha, MD Interpreting Provider: Selma Kim Cha, MD - VTE Documentation of Mechanical Device: Venous foot pump, device Consult Discharge Plan - Plan Referrals: Lino Melton MD [Primary Care Provider] -
--- NOTE | 2017-08-10 20:22 | Orthopedics Progress Note ---
Date of Encounter: 08/10/17 Time of Encounter: 20:19 Subjective Principal diagnosis: Left tibial plateau fracture Interval history: 08/10/2017. Patient postop day #1 from ORIF of a left tibial plateau fracture. Patient is still having diminished sensation with numbness secondary to the nerve block. She is got good function of the foot. Pain management discussion with the patient was accomplished. Vital signs are stable she is afebrile. Dressings are dry. Function of the foot is intact. Marked diminished sensation from the thigh distal. Hemoglobin is stable. Impression: POD #1 ORIF left tibial plateau fracture Recommendation: Patient's orthopedic status is stable. Discussed with the patient that she needs to be strictly nonweightbearing and to continue to utilize the knee immobilizer. I discussed with her that I agree with a short- term rehabilitation status I think this will allow her to recover and begin a limited weightbearing ambulation quicker. If patient is discharged prior to my seeing her tomorrow, will need follow-up in about 2 weeks' time. Maintain dressings unless there is bleedthrough. Need to address VTE prophylaxis as well as pain management. Objective Vital signs: Vital Signs Temp Pulse Resp BP Pulse Ox 08/10/17 19:38 98.8 F 88 16 93/61 97 08/10/17 15:50 98.1 F 94 18 96/60 95 08/10/17 11:16 97.6 F 81 18 109/62 100 08/10/17 07:00 98.0 F 85 16 100/67 99 08/10/17 03:43 98.1 F 90 16 106/70 98 08/10/17 03:00 97.8 F 84 17 112/75 100 08/10/17 02:00 97.7 F 84 17 111/73 100 08/10/17 01:00 97.7 F 91 18 115/80 100 08/10/17 00:30 97.6 F 84 18 115/79 100 08/10/17 00:24 96 08/10/17 00:00 97.4 F L 90 18 136/81 96 08/09/17 23:51 99.0 F 86 16 119/81 98 08/09/17 23:41 84 16 112/74 100 08/09/17 23:31 87 16 112/74 98 08/09/17 23:21 98.0 F 111 16 110/62 95 Intake and Output 08/10/17 08/10/17 08/10/17 07:59 15:59 23:59 Intake Total 840 / 840 1600 / 1600 700 / 700 Output Total 400 / 400 300 / 300 Balance 440 / 440 1300 / 1300 700 / 700 Intake: IV Fluids 1600 / 1600 700 / 700 Lactated Ringers 1,000 ML @ 75 1400 / 1400 600 / 600 mls/hr IVC .[id number] [facility] Rx#: [id number] Ancef 2,000 MG In 0.9 % Sodium 100 / 100 100 / 100 Chloride 100 ML @ 200 mls/hr IVPB Q8HR [facility] Rx#:[id number] Oral 840 / 840 Output: Urine 400 / 400 300 / 300 Other: Meal Breakfast Percent of Meal Consumed 50% # Voids 1 1 Weight 79.4 kg Patient Weight 08/10/17 23:59 Weight 79.4 kg - Labs CBC & BMP: 08/10/17 01:37 08/10/17 01:37 Labs: Abnormal lab results RBC 3.48 M/mcL (3.82-4.97) L 08/10/17 01:37 Hgb 10.7 g/dL (11.5-15.4) L 08/10/17 01:37 Hct 32.7 % (35.3-44.9) L 08/10/17 01:37 Glucose 184 mg/dL (70-105) H 08/10/17 01:37 - VTE Documentation of Mechanical Device: Venous foot pump, device Consult Discharge Plan - Plan Referrals: Lino Melton MD [Primary Care Provider] -
[2017-08-11] MEDS: *HR* Meperidine 25 MG/ML SYRINGE IVP PRN ×6 (00:14→21:17)
[2017-08-11 01:39] LABS: Hematocrit 25.5 % (35.3-44.9)
[2017-08-11 01:42] LABS: Hemoglobin 8.2 g/dL (11.5-15.4)
[2017-08-11] MEDS: *HR* Enoxaparin 30 MG/0.3 ML SYRINGE SQ SCH ×2 (06:23→16:55)
[2017-08-11] MEDS: Ketorolac 30 MG/ML VIAL IVP PRN (06:31)
[2017-08-11] MEDS ORDERED: *HR* OxyCODONE Immed Rel 5 MG TABLET PO PRN (12:41)
[2017-08-11] MEDS: *HR* OxyCODONE Immed Rel 5 MG TABLET PO PRN ×3 (14:19→22:44)
--- NOTE | 2017-08-11 17:52 | Internal Med Progress Note ---
Date of Encounter: 08/11/17 Time of Encounter: 16:15 - Assessment and plan (1) Tibial plateau fracture Current Visit: Yes Status: Acute Assessment and plan: Pt with acute traumatic L tibial plateau fracture s/p OR Working on rehab placement. Pain meds adjusted. Qualifiers: Encounter type: subsequent encounter Fracture type: closed Laterality: left Fracture healing: with routine healing Qualified Code(s): S82.142D - Displaced bicondylar fracture of left tibia, subsequent encounter for closed fracture with routine healing (2) Anemia Current Visit: Yes Status: Acute Assessment and plan: H/H lower today. Recheck tomorrow. Hold transfusion at this time. Qualifiers: Anemia type: other cause Other causes of anemia: acute posthemorrhagic Qualified Code(s): D62 - Acute posthemorrhagic anemia - Time Spent With Patient Total time spent is greater than 50% in coordination of care (as documented) at patient's floor/unit and/or counseling patient: - Subjective Interval history: Ms Gregory is currently admitted for acute L tibial plateau fracture. She is s/ p repair. She remains moderate to high risk due to potential for worsening clinical status. Ms Gregory continues to complain of pain. Taking pain meds routinely. Changed to PO Oxy today. Appetite fair. Had low grade temp today. Incentive spirometry ordered. Urine ordered as well. Not getting up too much - goes to bathroom. - Constitutional Vitals: Temp Pulse Resp BP Pulse Ox 100 F H 100 16 118/74 92 08/11/17 16:43 08/11/17 16:43 08/11/17 16:43 08/11/17 16:43 08/11/17 16:43 General appearance: Present: A&O X 3, pleasant, answers questions appropriately - Head Head exam: Present: normocephalic - Eye Eye exam: Present: EOMI, conjuntiva pink - ENT ENT exam: Present: mucous membranes moist - Respiratory Respiratory exam: Present: CTAB. Absent: rhonchi, wheezes - Cardiovascular Cardiovascular exam: Present: RRR. Absent: tachycardia - GI/Abdominal GI/Abdominal exam: Present: soft. Absent: tenderness - Extremities Exam Extremities exam: Present: tenderness, warm - Neurological Exam Neurological exam: Present: alert, oriented X3 - Skin Skin exam: Present: dry, warm Internal Medicine: Result - Labs CBC & Chem 7: 08/11/17 01:16 08/10/17 01:37 Labs: Short CBC 08/11/17 Range/Units 01:16 Hgb 8.2 L D (11.5-15.4) g/dL Hct 25.5 L (35.3-44.9) % - VTE Documentation of Mechanical Device: Graduated compression elastic hosiery Consult Discharge Plan - Plan Referrals: Lino Melton MD [Primary Care Provider] -
--- NOTE | 2017-08-11 22:24 | Orthopedics Progress Note ---
Date of Encounter: 08/11/17 Time of Encounter: 22:22 Subjective Principal diagnosis: Left tibial plateau fracture Interval history: 08/10/2017. Patient postop day #1 from ORIF of a left tibial plateau fracture. Patient is still having diminished sensation with numbness secondary to the nerve block. She is got good function of the foot. Pain management discussion with the patient was accomplished. Vital signs are stable she is afebrile. Dressings are dry. Function of the foot is intact. Marked diminished sensation from the thigh distal. Hemoglobin is stable. Impression: POD #1 ORIF left tibial plateau fracture Recommendation: Patient's orthopedic status is stable. Discussed with the patient that she needs to be strictly nonweightbearing and to continue to utilize the knee immobilizer. I discussed with her that I agree with a short- term rehabilitation status I think this will allow her to recover and begin a limited weightbearing ambulation quicker. If patient is discharged prior to my seeing her tomorrow, will need follow-up in about 2 weeks' time. Maintain dressings unless there is bleedthrough. Need to address VTE prophylaxis as well as pain management. 2017. Patient postop day #2 ORIF left tibial plateau fracture. Pain appears to be better controlled at this time. She is in much better spirits. Vital signs are stable. Temperature about 100. Dressings dry. Hemoglobin is 8.7. Impression: POD #2 ORIF left tibial plateau fracture with acute blood loss anemia Recommendation: Orthopedic status appears relatively stable. Pain management appears improved. Would not transfuse unless patient grossly symptomatic. Question the validity of a hemoglobin of 8.7, recommend repeat. Patient awaiting approval for rehabilitation discharge. Objective Vital signs: Vital Signs Temp Pulse Resp BP Pulse Ox 08/11/17 18:33 100.2 F H 108 16 104/67 99 08/11/17 16:43 100 F H 100 16 118/74 92 08/11/17 14:53 101.1 F H 110 16 106/53 96 08/11/17 10:46 98.7 F 99 18 112/72 92 08/11/17 06:57 99.2 F 97 10 108/59 100 08/11/17 00:15 98.7 F 91 16 95/60 92 Intake and Output 08/11/17 08/11/17 08/11/17 07:59 15:59 23:59 Intake Total 300 / 300 Output Total 200 / 200 Balance -200 / -200 300 / 300 Intake: Oral 300 / 300 Output: Urine 200 / 200 - Labs CBC & BMP: 08/11/17 01:16 08/10/17 01:37 Labs: Abnormal lab results RBC 3.48 M/mcL (3.82-4.97) L 08/10/17 01:37 Hgb 8.2 g/dL (11.5-15.4) L D 08/11/17 01:16 Hct 25.5 % (35.3-44.9) L 08/11/17 01:16 Glucose 184 mg/dL (70-105) H 08/10/17 01:37 - VTE Documentation of Mechanical Device: Venous foot pump, device Consult Discharge Plan - Plan Referrals: Lino Melton MD [Primary Care Provider] -
[2017-08-11 22:46] LABS: Bilirubin,Urine Negative (Negative); Blood,Urine Moderate (Negative); Clarity,Urine Clear (Clear); Color,Urine Yellow (Yellow); Glucose,Urine (UA) Normal (Normal); Ketones,Urine Negative (Negative); Leukocyte Esterase,Urine Trace (Negative); Nitrite,Urine Negative (Negative); Protein,Urine Negative (Neg-Trace); Specific Gravity,Urine 1.012 (1.010-1.025); Urobilinogen,Urine Normal (Normal)
[2017-08-11 22:48] LABS: Bacteria,Urine None Seen per hpf (None-Few); Hyaline Casts,Urine None Seen per lpf (None-Few); Squamous Epithelial Cell,Urine Many per lpf (None-Few)
[2017-08-12 01:34] LABS: Hematocrit 24.9 % (35.3-44.9); Mean Corpuscular HGB Conc 32.1 g/dL (31.6-35.5); Mean Corpuscular Hemoglobin 29.7 pg (28.0-33.3); Mean Corpuscular Volume 92.6 fL (83.0-100.0); Mean Platelet Volume 10.4 fL (9.4-12.4); Platelet Count 155 K/mcL (140-400); Red Blood Count 2.69 M/mcL (3.82-4.97); Red Cell Distribution Width 14.1 % (11.5-14.5)
[2017-08-12 01:59] LABS: Alanine Aminotransferase 8 Units/L (7-52); Albumin 2.9 g/dL (3.5-5.7); Alkaline Phosphatase 61 Units/L (34-104); Aspartate Amino Transferase 25 Units/L (13-39); BUN/Creatinine Ratio 15 (6-26); Bilirubin,Total 0.5 mg/dL (0.3-1.0); Blood Urea Nitrogen 10 mg/dL (6-20); Calcium 8.1 mg/dL (8.6-10.3); Carbon Dioxide 26 mEq/L (23-29); Chloride 101 mEq/L (98-107); Globulin 2.8 g/dL (2.4-3.5); Glucose 117 mg/dL (70-105); Magnesium 1.6 mg/dL (1.6-2.6); Osmolality,Calculated 276 (280-300); Potassium 3.6 mEq/L (3.5-5.1); Sodium 133 mEq/L (136-145); Total Protein 5.7 g/dL (6.4-8.9); eGFR For African Americans > 60 (> 60); eGFR For Non-African Americans > 60 (> 60)
[2017-08-12] MEDS: *HR* OxyCODONE Immed Rel 5 MG TABLET PO PRN ×5 (02:16→19:01)
[2017-08-12] MEDS: *HR* Meperidine 25 MG/ML SYRINGE IVP PRN ×6 (05:46→20:35)
[2017-08-12] MEDS: *HR* Enoxaparin 30 MG/0.3 ML SYRINGE SQ SCH ×2 (05:46→17:03)
--- NOTE | 2017-08-12 17:14 | Internal Med Progress Note ---
Date of Encounter: 08/12/17 Time of Encounter: 15:30 - Assessment and plan (1) Tibial plateau fracture Current Visit: Yes Status: Acute Assessment and plan: Pt with acute traumatic L tibial plateau fracture s/p OR Awaiting rehab placement. Pain control. Qualifiers: Encounter type: subsequent encounter Fracture type: closed Laterality: left Fracture healing: with routine healing Qualified Code(s): S82.142D - Displaced bicondylar fracture of left tibia, subsequent encounter for closed fracture with routine healing (2) Anemia Current Visit: Yes Status: Acute Assessment and plan: No need for transfusion. Asymptomatic. Recheck in AM. Qualifiers: Anemia type: other cause Other causes of anemia: acute posthemorrhagic Qualified Code(s): D62 - Acute posthemorrhagic anemia - Time Spent With Patient Total time spent is greater than 50% in coordination of care (as documented) at patient's floor/unit and/or counseling patient: - Subjective Interval history: Ms Gregory is currently admitted for acute L tibial plateau fracture. She is s/ p repair. She remains moderate to high risk due to potential for worsening clinical status. Ms Gregory feels the pain is beginning to improve. No fever or chills. No CP or SOB. Awaiting precert for SNF. - Constitutional Vitals: Temp Pulse Resp BP Pulse Ox 99.5 F 84 16 108/71 100 08/12/17 14:53 08/12/17 14:53 08/12/17 14:53 08/12/17 14:53 08/12/17 14:53 General appearance: Present: A&O X 3, pleasant, answers questions appropriately - Head Head exam: Present: normocephalic - Eye Eye exam: Present: EOMI, conjuntiva pink - ENT ENT exam: Present: mucous membranes dry - Respiratory Respiratory exam: Present: CTAB. Absent: rhonchi, wheezes - Cardiovascular Cardiovascular exam: Present: RRR. Absent: tachycardia - GI/Abdominal GI/Abdominal exam: Present: soft - Extremities Exam Extremities exam: Present: tenderness, warm - Neurological Exam Neurological exam: Present: alert, oriented X3 - Skin Skin exam: Present: dry, warm Internal Medicine: Result - Labs CBC & Chem 7: 08/12/17 01:11 08/12/17 01:11 Labs: Short CBC 08/12/17 Range/Units 01:11 WBC 7.6 (4.3-11.1) K/mcL Hgb 8.0 L (11.5-15.4) g/dL Hct 24.9 L (35.3-44.9) % Plt Count 155 (140-400) K/mcL BMP 08/12/17 01:11 Sodium 133 L Potassium 3.6 Chloride 101 Carbon Dioxide 26 BUN 10 Creatinine 0.65 Glucose 117 H Calcium 8.1 L Liver Function 08/12/17 Range/Units 01:11 Total Bilirubin 0.5 (0.3-1.0) mg/dL AST 25 (13-39) Units/L ALT 8 (7-52) Units/L Alkaline Phosphatase 61 (34-104) Units/L Albumin 2.9 L (3.5-5.7) g/dL Urine 08/11/17 Range/Units 22:32 Urine Color Yellow (Yellow) Urine Clarity Clear (Clear) Urine pH 6.0 (5.0-8.0) pH Units Ur Specific [place] 1.012 (1.010-1.025) Urine Protein Negative (Neg-Trace) mg/dL Urine Glucose (UA) Normal (Normal) mg/dL - VTE Documentation of Mechanical Device: Venous foot pump, device Consult Discharge Plan - Plan Referrals: Lino Melton MD [Primary Care Provider] -
--- NOTE | 2017-08-12 18:49 | Orthopedics Progress Note ---
Date of Encounter: 08/12/17 Time of Encounter: 18:48 Subjective Principal diagnosis: Left tibial plateau fracture Interval history: 08/10/2017. Patient postop day #1 from ORIF of a left tibial plateau fracture. Patient is still having diminished sensation with numbness secondary to the nerve block. She is got good function of the foot. Pain management discussion with the patient was accomplished. Vital signs are stable she is afebrile. Dressings are dry. Function of the foot is intact. Marked diminished sensation from the thigh distal. Hemoglobin is stable. Impression: POD #1 ORIF left tibial plateau fracture Recommendation: Patient's orthopedic status is stable. Discussed with the patient that she needs to be strictly nonweightbearing and to continue to utilize the knee immobilizer. I discussed with her that I agree with a short- term rehabilitation status I think this will allow her to recover and begin a limited weightbearing ambulation quicker. If patient is discharged prior to my seeing her tomorrow, will need follow-up in about 2 weeks' time. Maintain dressings unless there is bleedthrough. Need to address VTE prophylaxis as well as pain management. 2017. Patient postop day #2 ORIF left tibial plateau fracture. Pain appears to be better controlled at this time. She is in much better spirits. Vital signs are stable. Temperature about 100. Dressings dry. Hemoglobin is 8.7. Impression: POD #2 ORIF left tibial plateau fracture with acute blood loss anemia Recommendation: Orthopedic status appears relatively stable. Pain management appears improved. Would not transfuse unless patient grossly symptomatic. Question the validity of a hemoglobin of 8.7, recommend repeat. Patient awaiting approval for rehabilitation discharge. 08/12/2017. Patient POD #3 ORIF left tibial plateau fracture. Patient is improving regularly. Pain is much better controlled. Awaiting decision for rehabilitation placement. Vital signs are stable. Patient is afebrile. Dressings remain clean and dry. Neurovascular exam is intact. Hemoglobin 8.0. Clinically asymptomatic. Impression: POD #3 ORIF left tibial plateau fracture. Asymptomatic acute blood loss anemia Recommendation: As noted previously orthopedic status remained stable. Patient can be discharged when arrangements completed. Needs to be strict nonweightbearing and avoid any knee flexion. We will need follow-up with me in roughly 2 weeks' time. Objective Vital signs: Vital Signs Temp Pulse Resp BP Pulse Ox 08/12/17 14:53 99.5 F 84 16 108/71 100 08/12/17 11:12 99.5 F 88 17 112/76 97 08/12/17 08:50 109/67 08/12/17 06:55 99.4 F 100 16 106/72 96 08/12/17 03:46 99.1 F 103 16 112/73 95 08/11/17 22:48 99.4 F 98 16 104/67 96 Intake and Output 08/12/17 08/12/17 08/12/17 07:59 15:59 23:59 Intake Total 700 / 700 240 / 240 240 / 240 Output Total 1050 / 1050 1675 / 1675 1200 / 1200 Balance -350 / -350 -1435 / -1435 -960 / -960 Intake: Oral 700 / 700 240 / 240 240 / 240 Output: Urine 1050 / 1050 1675 / 1675 1200 / 1200 Other: Meal Lunch Dinner Percent of Meal Consumed 50% 100% - Labs CBC & BMP: 08/12/17 01:11 08/12/17 01:11 Labs: Abnormal lab results RBC 2.69 M/mcL (3.82-4.97) L 08/12/17 01:11 Hgb 8.0 g/dL (11.5-15.4) L 08/12/17 01:11 Hct 24.9 % (35.3-44.9) L 08/12/17 01:11 Sodium 133 mEq/L (136-145) L 08/12/17 01:11 Glucose 117 mg/dL (70-105) H 08/12/17 01:11 Calculated Osmolality 276 (280-300) L 08/12/17 01:11 Calcium 8.1 mg/dL (8.6-10.3) L 08/12/17 01:11 Serum Total Protein 5.7 g/dL (6.4-8.9) L 08/12/17 01:11 Albumin 2.9 g/dL (3.5-5.7) L 08/12/17 01:11 Albumin/Globulin Ratio 1.0 (1.1-2.2) L 08/12/17 01:11 Urine Blood Moderate (Negative) H 08/11/17 22:32 Ur Leukocyte Esterase Trace (Negative) H 06/27/18 22:32 Urine Microscopic RBC 5-15 per hpf (0-3) H 08/11/17 22:32 Urine Microscopic WBC 3-5 per hpf (0-3) H 08/11/17 22:32 Ur Squamous Epith Cells Many per lpf (None-Few) H 08/11/17 22:32 Ur Culture Indicated? NO. (NO) A 08/11/17 22:32 - VTE Documentation of Mechanical Device: Venous foot pump, device Consult Discharge Plan - Plan Referrals: Lino Melton MD [Primary Care Provider] -
[2017-08-12] MEDS ORDERED: Benzonatate 100 MG CAPSULE PO PRN (22:42)
[2017-08-12] MEDS: *HR* Meperidine 50 MG/ML SYRINGE IVP PRN (22:59)
[2017-08-12] MEDS ORDERED: *HR* Meperidine 50 MG/ML SYRINGE IVP PRN (23:00)
[2017-08-13 01:22] LABS: Hematocrit 23.9 % (35.3-44.9); Hemoglobin 7.8 g/dL (11.5-15.4); Mean Corpuscular HGB Conc 32.6 g/dL (31.6-35.5); Mean Corpuscular Volume 91.9 fL (83.0-100.0); Mean Platelet Volume 10.1 fL (9.4-12.4); Platelet Count 172 K/mcL (140-400); Red Cell Distribution Width 13.9 % (11.5-14.5)
[2017-08-13] MEDS: *HR* Meperidine 50 MG/ML SYRINGE IVP PRN ×2 (01:29→04:52)
[2017-08-13 01:39] LABS: BUN/Creatinine Ratio 11 (6-26); Blood Urea Nitrogen 7 mg/dL (6-20); Calcium 8.4 mg/dL (8.6-10.3); Carbon Dioxide 28 mEq/L (23-29); Chloride 101 mEq/L (98-107); Glucose 106 mg/dL (70-105); Magnesium 1.9 mg/dL (1.6-2.6); Osmolality,Calculated 280 (280-300); Potassium 3.9 mEq/L (3.5-5.1); Sodium 136 mEq/L (136-145); eGFR For African Americans > 60 (> 60); eGFR For Non-African Americans > 60 (> 60)
[2017-08-13] MEDS: Ketorolac 30 MG/ML VIAL IVP PRN ×2 (03:46→12:54)
[2017-08-13] MEDS: *HR* Enoxaparin 30 MG/0.3 ML SYRINGE SQ SCH (04:51)
[2017-08-13] MEDS: *HR* OxyCODONE Immed Rel 5 MG TABLET PO PRN ×2 (09:32→14:52)
[2017-08-13 11:28] VITALS: BP 103/68
--- NOTE | 2017-08-13 11:53 | Discharge Summary ---
- NOTES TO OUTPATIENT PROVIDER Notes to Outpatient Provider: Ms Gregory was admitted with acute L tibial plateau fracture. She underwent surgery and is going to SNF for rehab. Orders not resulted at time of discharge: Pending orders 08/09/17 19:00 US anesthesia pain block [US] Routine 08/09/17 20:10 XR knee 4V LT [XR] Routine Date of Encounter: 08/13/17 Time of Encounter: 11:00 - Discharge Diagnosis (1) Tibial plateau fracture Priority: Primary Status: Acute Qualifiers: Encounter type: subsequent encounter Fracture type: closed Laterality: left Fracture healing: with routine healing Qualified Code(s): S82.142D - Displaced bicondylar fracture of left tibia, subsequent encounter for closed fracture with routine healing (2) Anemia Priority: Secondary Status: Acute Qualifiers: Anemia type: other cause Other causes of anemia: acute posthemorrhagic Qualified Code(s): D62 - Acute posthemorrhagic anemia Hospital course: Ms. Gregory is a 51 year old female presented to ED after a fall. She was found to have L tibial plateau fracture and admitted. Ms Gregory was admitted to med surg. She was stared on pain meds and seen by other. She went to surgery for repair and was seen by PT/OT and rehab recommended. She was continued in hospital till precert obtained. Today she is afebrile and ready for discharge home. Discharge discussed with: patient - Time Spent with Patient Total time spent providing and/or coordinating discharge services: - Discharge Medications Prescriptions: OxyCODONE Immed Rel [Roxicodone 5 MG] 5 - 10 mg PO Q4HR PRN 1 Days #15 tablet PRN Reason: Pain Home Medications: Acyclovir [Zovirax] 400 mg PO TID PRN 08/09/17 [History] Ascorbate Calcium [Vitamin C] 1,000 mg PO DAILY 08/09/17 [History] Calcium Carbonate [Calcium] 600 mg PO DAILY 08/09/17 [History] Cholecalciferol (D-3) [Vitamin D] 1,000 unit PO DAILY 08/09/17 [History] Enoxaparin [Lovenox] 30 mg SQ Q12HR syringe 08/13/17 [Rx] OxyCODONE Immed Rel [Roxicodone 5 MG] 5 - 10 mg PO Q4HR PRN 1 Days #15 tablet [Rx] Allergies/Adverse Reactions: 3 Allergy/AdvReac Type Severity Reaction Status Date / Time tramadol AdvReac Drowsy Verified 03/02/17 09:46 Date of admission: 08/08/17 19:22 Primary care physician: Lino Melton MD Consults: 08/10/17 00:33 Consult to Occupational Therapy [CONS] Routine Comment: Evaluate, develop and implement POC Reason for Consult: adls Does patient have active BEDREST order?: No Is patient medically & hemodynamically stable?: Yes Consult to Physical Therapy [CONS] Routine Comment: Evaluate, develop and implement POC Reason for Consult: fx Does patient have active BEDREST order?: No Is patient medically & hemodynamically stable?: Yes Consult to L[facility] Silverer [CONS] Routine Reason for SW Consult: dc Discharging clinician: Margarito Summers Anticipated date of discharge: 08/13/17 - Constitutional Vitals: Temp Pulse Resp BP Pulse Ox 98.3 F 81 16 103/68 96 08/13/17 11:27 08/13/17 11:27 08/13/17 11:27 08/13/17 11:27 08/13/17 11:27 General appearance: Present: A&O X 3, pleasant, answers questions appropriately - Head Head exam: Present: normocephalic - Eye Eye exam: Present: conjuntiva pink - ENT ENT exam: Present: mucous membranes moist - Respiratory Respiratory exam: Absent: rhonchi, wheezes - Cardiovascular Cardiovascular exam: Present: RRR. Absent: tachycardia - GI/Abdominal GI/Abdominal exam: Present: soft. Absent: tenderness - Extremities Exam Extremities exam: Present: tenderness, warm - Neurological Exam Neurological exam: Present: alert, oriented X3 - Skin Skin exam: Present: dry, warm - Patient Status Disposition: Transfer SNF Condition: Good Functional capacity at discharge: uses cane/walker Overall status at discharge: patient is progressing back to baseline - Discharge Instructions Follow Up With: Marco A Orozco DO [Non-Partnered Physician] - 08/25/17 11:00 am Lino Melton MD [Primary Care Provider] - Additional Instructions: Non weight bearing on L leg - no bending knee. - Diet and Activity Activity: as per physical therapy Diet: advance to your usual diet - VTE Documentation of Mechanical Device: Graduated compression elastic hosiery
--- NOTE | 2017-08-13 11:57 | Physician Discharge Referral ---
[facility] Referral Info Provider in Charge after Transfer: PCP Institutional Level of Care: Skilled - Diagnosis (1) Tibial plateau fracture Priority: Primary Status: Acute (2) Anemia Priority: Secondary Status: Acute Prognosis: Good Aware of Diagnosis: Patient Aware of Prognosis: Patient - Transfer Medications Prescriptions: OxyCODONE Immed Rel [Roxicodone 5 MG] 5 - 10 mg PO Q4HR PRN 1 Days #15 tablet PRN Reason: Pain Home Medications: Acyclovir [Zovirax] 400 mg PO TID PRN 08/09/17 [History] Ascorbate Calcium [Vitamin C] 1,000 mg PO DAILY 08/09/17 [History] Calcium Carbonate [Calcium] 600 mg PO DAILY 08/09/17 [History] Cholecalciferol (D-3) [Vitamin D] 1,000 unit PO DAILY 08/09/17 [History] Enoxaparin [Lovenox] 30 mg SQ Q12HR syringe 08/13/17 [Rx] OxyCODONE Immed Rel [Roxicodone 5 MG] 5 - 10 mg PO Q4HR PRN 1 Days #15 tablet [Rx] Allergies/Adverse Reactions: 3 Allergy/AdvReac Type Severity Reaction Status Date / Time tramadol AdvReac Drowsy Verified 03/02/17 09:46 - Respiratory Orders None Smoking Cessation: Smoking cessation has been advised. For more information, call the [place] Tobacco Quit Line at 8-428-CVWH-NOW. - Advance Directives Code Status: Full Code - Mobility Orders Ambulate, Other (Per ortho - nonweight bearing L leg and no bending knee.) - Rehabiliation Orders Rehab Orders: Evaluation for Physical Therapy, Evaluation for Occupational Therapy - Treatments Skin tear care topically daily PRN per policy, May check for fecal impaction rectally daily PRN, Fleet enema rectally every other day PRN cleansing purposes - Diet Orders Regular CERTIFICATION: I certify that the transfer of the above named patient to an Extended Care Facility is necessary for the continuing treatment of the diagnosis listed. The above information is true and accurate reflection of patient's current condition. Confidential - Redisclosure prohibited without a patient's written consent.
== END 2017-08-13 14:54 | DRG 488 ==
LOC: EMEROO 17:02 → 3NENU 17:02
PROVIDERS: ADMIT Internal Medicine; ATTEND Internal Medicine